=== PATIENT | female | born 1990 | race Caucasian/White ===

== ENCOUNTER 2019-04-23 19:04 | Emergency (ER) | payer MEDICAID ==
[~2019-04-23] VITALS: Ht 172.7 cm; Wt 63.5 kg
--- NOTE | 2019-04-23 22:28 | NUR ---
Pt provided urine sample, sent to lab.
[2019-04-23 23:06] VITALS: BP 108/75
--- NOTE | 2019-04-23 23:06 | NUR ---
Patient discharged to home in stable conditon. Written and verbal after care instructions given. Patient verbalizes understanding of instructions. Pt ambulated out of ER with steady gait, no acute signs of distress, VSS, all belongings taken.
[2019-04-23 23:08] LABS: *URINE HCG, QUAL NEGATIVE (NEGATIVE)
== END 2019-04-23 23:07 | disposition home or self-care (01) ==
LOC: ER 19:04
DX: S00.06XA Insect bite (nonvenomous) of scalp, initial encounter (principal); S30.860A Insect bite (nonvenomous) of lower back and pelvis, initial encounter; W57.XXXA Bitten or stung by nonvenomous insect and other nonvenomous arthropods, initial encounter; Y93.89 Activity, other specified; Y92.89 Other specified places as the place of occurrence of the external cause; Y99.8 Other external cause status
CPT/HCPCS: 84703; A4663